=== PATIENT | female | born 1960 | race Caucasian/White ===

== ENCOUNTER 2021-10-14 06:57 | Emergency (ER) | payer SELFPAY ==
[~2021-10-14] VITALS: Ht 157.5 cm; Wt 68.0 kg
[~2021-10-14 06:57] MED LIST: METHADONE HCL10 MG PO
[2021-10-14] MEDS ORDERED: ONDANSETRON ODT4 MG PO ×2 (07:13→07:17)
[2021-10-14] MEDS ORDERED: BENTYL10 MG/1 ML PO ×2 (07:14→07:17)
== END 2021-10-14 07:29 | disposition home or self-care (01) ==
LOC: ER 07:03
DX: R11.0 Nausea (principal); R19.7 Diarrhea, unspecified; R52 Pain, unspecified; F11.90 Opioid use, unspecified, uncomplicated
CPT/HCPCS: 99284

== ENCOUNTER 2025-06-06 09:18 | Emergency (ER) | payer MEDICARE ==
[~2025-06-06] VITALS: Ht 157.5 cm; Wt 49.9 kg
[~2025-06-06 09:18] MED LIST changes: +BENTYL10 MG/1 ML PO; +ONDANSETRON ODT4 MG PO
[2025-06-06 10:04] VITALS: TEMP 97.9
[2025-06-06] MEDS ORDERED: SODIUM CHLORIDE 0.9% 1000ML 1,000 ML IV STA (10:42)
[2025-06-06] MEDS ORDERED: ONDANSETRON HCL INJ 2MG/ML 2ML 2 MG/ML VIAL IV PRN (10:45)
[2025-06-06 10:59] VITALS: PULSE 89; RESP 16; O2SAT 96
[2025-06-06 11:34] LABS: BASOPHILS % 0.2 % (0.0-1.0); EOSINOPHILS % 0.5 % (0.0-6.0); LYMPHOCYTES % 4.8 % (18.0-39.1); MONOCYTES % 4.7 % (4.4-11.3); NEUTROPHILS % 89.1 % (38.7-80.0); RED CELL DISTRIBUTION WIDTH 12.6 % (11.7-14.4)
[2025-06-06 13:40] LABS: EST GLOMERULAR FILTRATION RATE 24.0 ML/MIN (>=60)
== END 2025-06-06 14:41 | disposition home or self-care (01) ==
LOC: ER 10:19
DX: K59.00 Constipation, unspecified (principal); R10.32 Left lower quadrant pain; N13.2 Hydronephrosis with renal and ureteral calculous obstruction; K57.90 Diverticulosis of intestine, part unspecified, without perforation or abscess without bleeding; Z86.14 Personal history of Methicillin resistant Staphylococcus aureus infection
CPT/HCPCS: 36415; 74176; 80053; 83690; 85025; 99284